=== PATIENT | female | born 1965 | race Caucasian/White ===

== ENCOUNTER 2016-12-03 07:28 | Inpatient (IN) | payer MEDICARE, OTHER ==
[2016-11-29 14:11] LABS: HEMATOCRIT 41.4 % (36.0-48.0); HEMOGLOBIN 13.5 g/dL (12.0-16.0)
--- NOTE | ~2016-12-03 | OP ---
Record Of Operation [facility] [address] [place]. [address] NAME: ISIDRO LOPEZ : 61 STATUS : ADM IN PAT#: [id number] AGE: 51 ADM/REG DATE : 12/03/16 MR#: [id number] REPORT SERV DATE: 12/03/16 DICTATED BY: AQUILES QUILES DATE: 12/03/16 REPORT STATUS : Draft TRANSCRIBED BY: MODL DATE: 12/03/16 DATE OF PROCEDURE: 12/03/2016 PREOPERATIVE DIAGNOSIS: C3 through C7 disk disease and stenosis with cervical radiculopathy and cervical myelopathy. POSTOPERATIVE DIAGNOSIS: C3 through C7 disk disease and stenosis with cervical radiculopathy and cervical myelopathy. PROCEDURES: Anterior cervical diskectomy and fusion, C3-4, C4-5, and C5-6; placement of Medtronic PEEK interbody spacer, C3-4, C4-5, C5-6; decompression of the C4-5 and 6 nerve roots bilaterally; anterior cervical plate, C3 through C6; allograft bone matrix; neuromonitoring; and operative microscope. SURGEON: Aquiles Quiles DO. ANESTHESIA: General. ESTIMATED BLOOD LOSS: 30 mL. COMPLICATIONS: None. INDICATIONS: The patient is a 51-year-old with intractable neck and arm pain with progressive signs of myelopathy, failed conservative treatment, and after discussion of the risks and benefits, elected to proceed with surgery. DESCRIPTION OF PROCEDURE: I identified the patient in the holding area. Consent was obtained. Went to the operating room. Underwent general anesthesia with endotracheal intubation. Prepped and draped in the usual sterile fashion. Operative safety pause was performed, then we proceeded. An oblique incision was made over the left side of the neck, taken down through the platysma. Dissection carried out down to the anterior aspect of the spine. Longus colli elevated. Self-retaining retractors were placed. Prichard pin was placed, and lateral fluoroscopic image was used to verify operative level. Distraction pins were placed at C3 and C4, distraction was applied. Operative microscope was brought in. A knife was used to perform an annulotomy. Free disk material was removed with the pituitary. Anterior osteophytes were removed with a Kerrison. Posterior osteophytes and uncinate processes were taken down with a rory foster. Foraminotomies performed with a Kerrison. Endplates were prepared with curettes, rasp, and a cutting foster. Trial spacer was implanted. The Medtronic PEEK interbody spacer with allograft bone matrix placed at C3-C4, this was repeated at C4-C5 and C5-C6. An attempt was made for C6-C7, but due to the patient's body habitus, it was not safe to reach that level anteriorly, so that was aborted. Prichard pins were removed. Anterior cervical plate from Medtronic was placed C3 through C6. Screws were placed, final tightened. Locking mechanism was engaged. Irrigation was performed. Hemostasis was achieved. Subfascial drain was placed. Layered closure was performed. Sterile dressings were applied. The patient was taken to the recovery room in stable condition. Record Of Operation [id number] [place]. [address] NAME: ISIDRO LOPEZ : 61 STATUS : ADM IN [facility]#: [id number] AGE: 51 ADM/REG DATE : 12/03/16 MR#: [id number] REPORT SERV DATE: 12/03/16 DICTATED BY: AQUILES QUILES DATE: 12/03/16 REPORT STATUS : Draft TRANSCRIBED BY: JUAN DATE: 12/03/16 OPERATIVE FINDINGS: C3-6 disk disease and stenosis. No sustained neuromonitoring alerts. C6-C7 was not safely accessible, so this was not performed. KOLTON/JUAN Aquiles Quiles DO / [id number] CC: Aquiles Quiles DO
--- NOTE | ~2016-12-03 | PREOPHP ---
PreOp History and Physical [address] [place]. [address] NAME: ISIDRO LOPEZ : 61 STATUS : REG [facility]#: [id number] AGE: 51 ADM/REG DATE : 12/03/16 MR#: [id number] REPORT SERV DATE: 12/03/16 DICTATED BY: AQUILES DAMON DATE: 12/03/16 REPORT STATUS : Draft TRANSCRIBED BY: JUAN DATE: 12/03/16 CHIEF COMPLAINT: Neck pain. HISTORY OF PRESENT ILLNESS: The patient is a 51-year-old with intractable neck pain, right upper extremity pain, paresthesias, and weakness. She has failed multiple attempts at conservative treatment including medications, physical therapy, steroid injections, activity modification. 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 REVIEW OF SYSTEMS: She denies chest pain, shortness of breath, and bowel or bladder changes. ALLERGIES: OXYCONTIN. HOME MEDICATIONS: Include amitriptyline, fluoxetine, gabapentin, lithium, [place]. FAMILY HISTORY: Noncontributory. PHYSICAL EXAMINATION: VITAL SIGNS: Height 5 feet 6 inches, weight 210, BMI 33.9. GENERAL: The patient is healthy appearing, in no acute distress. PSYCH: Alert and oriented x3. Normal mood and affect. Gait is somewhat unsteady. VASCULAR: No extremity swelling. NEUROLOGIC: Strength in the upper extremities remains 5/5. No focal deficits bilaterally. HEART: Regular rate and rhythm. LUNGS: Clear to auscultation. ABDOMEN: Soft, nontender, nondistended with good bowel sounds. BREASTS: Deferred. RECTAL: Deferred. IMAGING: I have reviewed the MRI scan. She has C3 through C7 disk disease and stenosis with spinal cord compression and sdgwdzmw-ec-ytszua stenosis at C3-C4, C5-C6, and C6-C7. ASSESSMENT: C3 through C7 disk disease and stenosis with spinal cord and nerve root compression, cervical radiculopathy, cervical myelopathy, failed conservative treatment. PLAN: After discussion of risks and benefits and informed consent and progressive neurologic decline, the patient elected to proceed with surgical intervention. Consent was obtained. All questions are answered. She is ready to proceed. KOLTON/JUAN Aquiles Luong History and Physical [address] [place]. [address] NAME: ISIDRO LOPEZ : 61 STATUS : REG [facility] PAT#: [id number] AGE: 51 ADM/REG DATE : 12/03/16 MR#: [id number] REPORT SERV DATE: 12/03/16 DICTATED BY: AQUILES DAMON DATE: 12/03/16 REPORT STATUS : Draft TRANSCRIBED BY: MODL DATE: 12/03/16 DO Marisol / [id number] CC: Aquiles Damon DO
[~2016-12-03 07:28] MED LIST: ACET500CAP PO; ADVIL PO; ESKALITH PO; FLEX PO; NEUR300 PO; NEUR600 PO; OXYCOD PO; PCET PO; PROZAC40 MG PO; T PO; ULTRAM50 PO; V5 PO
[2016-12-04 04:34] LABS: BUN (BLOOD UREA NITROGEN) 8 MG/DL (6-23); CALCIUM, SERUM 9.1 MG/DL (8.5-10.4); CHLORIDE, SERUM 109 MMOL/L (96-112); CO2 (CARBON DIOXIDE) 28 MMOL/L (24-34); CREATININE 0.69 MG/DL (0.55-1.02); GFR AFRICAN AMERICAN 115 ML/MIN (>=60); GFR NON AFRICAN AMERICAN 99 ML/MIN (>=60); GLUCOSE, SERUM 110 MG/DL (60-99); PHOSPHORUS, SERUM 3.4 MG/DL (2.5-4.5); POTASSIUM, SERUM 4.5 MMOL/L (3.5-5.3); SODIUM, SERUM 142 MMOL/L (135-148)
[2016-12-05] MEDS ORDERED: FLEX PO (14:37)
[2016-12-05] MEDS ORDERED: PCET PO (14:37)
== END 2016-12-05 15:42 | disposition home or self-care (01) | DRG 472 ==
LOC: SDC 07:28 → SDC/OF 13:16 → MIC 14:38 → 3SO 12-04 10:45
PROVIDERS: Orthopaedic Surgery
PROC: 0RG20A0 Fusion of 2 or more Cervical Vertebral Joints with Interbody Fusion Device, Anterior Approach, Anterior Column, Open Approach (ICD-10-PCS; principal; 2016-12-03 09:15)
PROC: 4A11X4G Monitoring of Peripheral Nervous Electrical Activity, Intraoperative, External Approach (ICD-10-PCS; 2016-12-03 09:15)
DX: M50.11 Cervical disc disorder with radiculopathy, high cervical region (principal); M50.01 Cervical disc disorder with myelopathy, high cervical region; R20.9 Unspecified disturbances of skin sensation; Z88.5 Allergy status to narcotic agent; Z79.899 Other long term (current) drug therapy
CPT/HCPCS: 80048; 82962; 83735; 84100; 85014; 85018; 87641; 88304; 88311; 93005; 97161-GP; A9270-GY; C1713; J0690; J2250; J2270; J2405; J2710; J3010

== ENCOUNTER 2017-04-15 08:54 | Inpatient (IN) | payer MEDICARE, OTHER ==
[2017-04-14 13:30] LABS: BASOPHILS 0.3 %; BASOPHILS ABSOLUTE 0.03 10/3/uL (0.0-0.16); EOSINOPHILS ABSOLUTE 0.22 10/3/uL (0.0-0.53); HEMATOCRIT 44.5 % (36.0-48.0); HEMOGLOBIN 14.6 g/dL (12.0-16.0); IMMATURE GRANULOCYTES 0.5 %; IMMATURE GRANULOCYTES ABSOLUTE 0.05 10/3/uL (0.0-0.11); LYMPHOCYTES 24.7 %; LYMPHOCYTES ABSOLUTE 2.73 10/3/uL (0.67-4.30); MEAN CORPUS HGB CONC 32.8 g/dL (32.0-36.0); MEAN CORPUSCULAR HEMOGLOB 29.9 pg (26.0-34.0); MEAN CORPUSCULAR VOLUME 91.2 fL (80-100); MEAN PLATELET VOLUME 9.4 fL (9.2-13.0); MONOCYTES 8.5 %; MONOCYTES ABSOLUTE 0.94 10/3/uL (0.21-1.20); PLATELET COUNT 460 10/3/uL (150-400); RBC DISTRIBUTION WIDTH 14.6 % (12.0-16.0); RED CELL COUNT 4.88 10/6/uL (4.0-5.6); WHITE BLOOD CELLS 11.1 10/3/uL (4.5-10.5)
[2017-04-14 13:31] LABS: MANUAL DIFF NO %
[2017-04-14 13:37] LABS: INTERNATIONAL NORMAL RATI 0.9 UNITS (-)
[2017-04-14 13:50] LABS: ALBUMIN 3.9 G/DL (3.5-5.0); ALKALINE PHOSPHATASE 80 U/L (45-117); BUN (BLOOD UREA NITROGEN) 9 MG/DL (6-23); CALCIUM, SERUM 9.7 MG/DL (8.5-10.4); CHLORIDE, SERUM 103 MMOL/L (96-112); CO2 (CARBON DIOXIDE) 32 MMOL/L (24-34); CREATININE 0.58 MG/DL (0.55-1.02); GFR AFRICAN AMERICAN 122 ML/MIN (>=60); GFR NON AFRICAN AMERICAN 105 ML/MIN (>=60); GLOBULIN 3.9 G/DL (2.5-4.1); GLUCOSE, SERUM 85 MG/DL (60-99); POTASSIUM, SERUM 4.1 MMOL/L (3.5-5.3); SGOT(AST) 12 U/L (5-40); SGPT(ALT) 28 U/L (5-65); SODIUM, SERUM 137 MMOL/L (135-148); TOTAL BILIRUBIN 0.4 MG/DL (0-1.2); TOTAL PROTEIN 7.8 G/DL (6.0-8.5)
[2017-04-14 14:31] LABS: ASCORBIC ACID (UR NOT ORDER) NEG (NEG); BILIRUBIN, URINE NEGATIVE (NEG); KETONE, URINE NEGATIVE (NEG); LEUKOCYTE ESTERASE(NOT OR NEG (NEG); WBC (NOT ORDERED) (RFLEX) 1 (0-5)
[~2017-04-15] VITALS: Ht 167.6 cm; Wt 121.6 kg
--- NOTE | ~2017-04-15 | OP ---
Record Of Operation [facility] [address] [place]. [address] NAME: ISIDRO LOPEZ : 61 STATUS : ADM IN PAT#: [id number] AGE: 51 ADM/REG DATE : 04/15/17 MR#: [id number] REPORT SERV DATE: 04/15/17 DICTATED BY: MAGDALENE GARCIA DATE: 04/15/17 REPORT STATUS : Draft TRANSCRIBED BY: MODL DATE: 04/15/17 DATE OF PROCEDURE: 04/15/2017 PREOPERATIVE DIAGNOSIS: Severe right knee degenerative joint disease. POSTOPERATIVE DIAGNOSIS: Severe right knee degenerative joint disease. OPERATION: Right posterior stabilized total knee replacement, cemented. SIDE: Right. SIZE: See chart. ANESTHESIA: See chart. ESTIMATED BLOOD LOSS: About 10 mL. TOURNIQUET TIME: Approximately 1 hour and 10 minutes. COMPLICATIONS: None. SPECIMENS: Articular surfaces. PROCEDURE: The patient was appropriately identified and marked. The operative side agreed with the consent form and it was checked by all members of the surgical team. The patient was taken to the operating room and anesthesia was induced per the anesthesiologist. The patient was carefully transferred to the operating table without incident. The patient received appropriate prophylactic antibiotics and a Sood catheter was placed in the standard sterile technique. The patient was then carefully positioned, padded, prepped and draped in the normal sterile fashion. The operative leg had been appropriately identified and checked by all members of the operating team against the consent form and found to be the correct limb. The patient's lower extremity was then exsanguinated with an Lior wrap and a tourniquet was inflated to 350 mm/Hg. Sharp dissection was carried out through a straight midline longitudinal incision and electrocautery through the fat. Sharp quad splitting approach was carried out between about the medial 10 percent of the tendon and the lateral 90 percent of the tendon and down around the medial aspect of the patella and then 1 cm medial to the tibial tubercle. The patella was carefully everted and the posterior fat pad was excised and gentle MCL elevation was carried out off the proximal medial tibia subperiosteally. IM guide was placed in the distal femur after using the appropriate drill. The distal femoral cutting guide was held with 2 pins and the distal cut made. Meniscal fragments and the ACL and the PCL were excised with electrocautery, carefully staying anterior to the posterior fat pad. The proximal tibial alignment guide was set appropriately and the proximal tibial cut made. Spacer block verified full extension with excellent mediolateral balance. Sizing guide was used to place 2 drill holes in the distal femur and the four-in-one cutting block was then placed, impacted and checked Record Of Operation [facility] [address] [place]. [address] NAME: ISIDRO LOPEZ : 61 STATUS : ADM IN PAT#: [id number] AGE: 51 ADM/REG DATE : 04/15/17 MR#: [id number] REPORT SERV DATE: 04/15/17 DICTATED BY: MAGDALENE GARCIA DATE: 04/15/17 REPORT STATUS : Draft TRANSCRIBED BY: MODL DATE: 04/15/17 to be sure it would not notch with an vidya wing and it was held with 2 pins. The anterior cut, posterior cut, anterior chamfer and posterior chamfer cuts were made. The pins were removed and the block was removed. A posterior release was carried out with a curved 3/4 inch osteotome staying right on the bone posteriorly. The box-cut guide was then placed, impacted and held with 2 pins and a reciprocating saw was used to cut out the box. With the trial components in place, there was excellent medial/lateral balance. The patella was then measured with a caliper, cut first with an oscillating saw and then reamed with a patella reamer. With the trial patella in place, there was excellent patellar tracking. Rotation was marked on the tibia and the tibia prepared with a drill and stamp chisel. All surfaces were then copiously irrigated with pulsatile lavage, carefully dried and then vacuum-mixed cement was pressurized with a cement gun in a doughy phase. The tibial component was placed, impacted and excess cement was removed. The cement was then pressurized in the femur and placed on the posterior runners of the femoral component, which was placed, impacted and excess cement removed and the knee was brought out into extension on a trial spacer. The cement was then pressurized in the patella. Patellar component was then placed, clamped and excess cement was removed. Once all cement was hardened, the knee was taken through range of motion. Further extruded cement was removed with a small osteotome. Then based on the trial inserts, we decided on the actual insert, which was placed in the standard fashion and held with a locking mechanism. The knee was then copiously irrigated and then closed in a layered fashion over a medium Hemovac drain superolaterally with interrupted #1 in the deep fascia, 2-0 subcutaneous and srinivas in the skin. The wounds were dressed sterilely and the tourniquet was deflated. The patient was then awakened and taken to the postanesthesia care unit without incident. All counts were correct at the end of the case. VELIA/JUAN Israel Garcia M.D. / [id number] CC: Israel Garcia M.D.
[2017-04-16 04:44] LABS: HEMOGLOBIN 11.8 g/dL (12.0-16.0)
[2017-04-16 04:45] LABS: HEMATOCRIT 36.1 % (36.0-48.0)
[2017-04-16 04:52] LABS: PROTIME (NOT ORD) 13.3 SEC (12.0-14.5)
[2017-04-16 04:56] LABS: CHLORIDE, SERUM 99 MMOL/L (96-112); CO2 (CARBON DIOXIDE) 30 MMOL/L (24-34); CREATININE 0.76 MG/DL (0.55-1.02); GFR AFRICAN AMERICAN 104 ML/MIN (>=60); GFR NON AFRICAN AMERICAN 90 ML/MIN (>=60); POTASSIUM, SERUM 4.3 MMOL/L (3.5-5.3); SODIUM, SERUM 134 MMOL/L (135-148)
[2017-04-16 04:57] LABS: BUN (BLOOD UREA NITROGEN) 15 MG/DL (6-23); GLUCOSE, SERUM 138 MG/DL (60-99)
[2017-04-16] MEDS ORDERED: C5 (10:39)
[2017-04-16] MEDS ORDERED: PCET PO (10:40)
== END 2017-04-16 16:41 | disposition home or self-care (01) | DRG 470 ==
LOC: ENRESERVTM → ENRESERVDT → ENRESERV → 3JRC 08:54 → SDC/OF 08:54 → 3JRC 14:52
PROVIDERS: Specialist
PROC: 3E0T3CZ (ICD-10-PCS; 2017-04-15)
PROC: 0SRC0J9 Replacement of Right Knee Joint with Synthetic Substitute, Cemented, Open Approach (ICD-10-PCS; principal; 2017-04-15 11:45)
DX: M17.11 Unilateral primary osteoarthritis, right knee (principal); G62.9 Polyneuropathy, unspecified; F17.210 Nicotine dependence, cigarettes, uncomplicated; F31.9 Bipolar disorder, unspecified; Z79.899 Other long term (current) drug therapy; Z90.710 Acquired absence of both cervix and uterus; Z98.890 Other specified postprocedural states; Z82.49 Family history of ischemic heart disease and other diseases of the circulatory system; Z83.3 Family history of diabetes mellitus
CPT/HCPCS: 71020; 80048; 80053; 81001; 85014; 85018; 85025; 85610; 87641; 88305; 88311; 93005; 97150-GP; 97161-GP; 97165-GO; A9270-GY; C1776; G8978-CJ-GP; G8979-CH-GP; G8987-CH-GO; G8988-CH-GO; G8989-CH-GO; J0690; J1170; J1885; J2250; J2270; J2405; J2795; J3010